=== PATIENT | female | born 1970 | race Hispanic/Latino ===

== ENCOUNTER → 2017-08-15 | Day surgery (SDC) | payer OTHER ==
[2017-08-14 16:08] LABS: ANION GAP 13.8 mmol/L (8-16); BLOOD UREA NITROGEN 14 mg/dL (7-26); BUN/CREATININE RATIO 20 (6-25); CALCIUM 9.8 mg/dL (8.4-10.2); CARBON DIOXIDE 27 mmol/L (22-29); CHLORIDE 103 mmol/L (98-107); CREATININE, SERUM 0.71 mg/dL (0.57-1.11); EST GLOMERULAR FILTRATION RATE > 60 ML/MIN (60-); GLUCOSE 170 mg/dL (74-118); POTASSIUM 3.8 mmol/L (3.5-5.1); SODIUM 140 mmol/L (136-145)
[~2017-08-15] MED LIST: ATORVASTATIN CA10 MG PO; BUPIVACAINE HCL 0.5% INJ 30 ML VIAL INJ ONE; CEFAZOLIN SOD 1 GM VIAL ONE; DEXAMETHASONE SOD PHOS INJ 4 MG/ML VIAL ONE; FENTANYL CITRATE/PF 100MCG/2 ML INJ ONE; HYDROMORPHONE 1MG/1ML INJ ONE; KETOROLAC TROMETHAMINE 30 MG/ML VIAL ONE; LEVOTHYROXINE50 MCG PO; LIDOCAINE HCL 2% LOCAL INJ 5 ML SDV VIAL INJ ONE; LISINOPRIL2.5 MG PO; METFORMIN HCL500 M2 PO; METOCLOPRAMIDE HCL 10 MG/2ML VIAL ONE; MIDAZOLAM HCL 2 MG/2 ML VIAL ONE; MUPIROCIN 2% OINT 22 GM TUBE ONE; ONDANSETRON HCL 4 MG ORAL DISINTEGRATING TAB ONE; ONDANSETRON HCL INJ 2 MG/ML VIAL ONE; PROPOFOL IV EMULSION 10 MG/ML 20 ML VIAL ONE; SEVOFLURANE INHAL SOLN 250 ML PEN BTL ONE
--- NOTE | 2017-08-15 14:17 | Operative Report ---
DATE OF PROCEDURE: August 15, 2017 GRAVEL WHEELER: Sky Grace PA-C The patient was brought to the operating room for induction of anesthesia. Throughout this case, my PA's assistance was necessary for retraction of soft tissue and positioning of the extremity. This allows for efficient and technically successful execution of the operation and is considered medically necessary. PREOPERATIVE DIAGNOSIS: Left olecranon process fracture. POSTOPERATIVE DIAGNOSIS: Left olecranon process fracture. PROCEDURE: Open reduction internal fixation left olecranon process. INDICATIONS: The patient is a 47-year-old lady who sustained a displaced left olecranon fracture. The findings and options have been discussed. We have recommended open reduction with internal fixation. The risks and benefits have been explained. She states she understands and wishes to proceed. DESCRIPTION OF PROCEDURE: The patient was brought to the operating room and placed under general anesthetic. Her left upper extremity was prepped and draped in a sterile manner. A preoperative time out was performed. She received prophylactic antibiotics in the holding area. A proximal tourniquet was inflated to 250 mmHg. A posterior incision was made over the elbow. The fracture site was carefully exposed. The fracture was reduced with a reduction clamp. A Jones and Nephew size specific olecranon plate was then placed onto the bone. This was locked proximally and distally with a combination of compression and locking screws. Anatomic reduction was obtained. Intraoperative x-rays confirmed satisfactory positioning of the hardware and reduction of the fracture. The wound was thoroughly irrigated. Ten mL of 0.5% Marcaine was injected around the incision. The incision was closed with subcuticular Vicryl and nylon stitches. A sterile bandage and a posterior splint were applied. The estimated blood loss was 5 mL. At the end of the procedure, all needle and sponge counts were correct. Job#: [id number] NAKIA
== END | disposition home or self-care (01) ==
LOC: OR 07:52
PROVIDERS: ATTEND Specialist
DX: S52.022A Displaced fracture of olecranon process without intraarticular extension of left ulna, initial encounter for closed fracture (principal); W01.0XXA Fall on same level from slipping, tripping and stumbling without subsequent striking against object, initial encounter; Y92.017 Garden or yard in single-family (private) house as the place of occurrence of the external cause; I10 Essential (primary) hypertension; E11.9 Type 2 diabetes mellitus without complications; Z79.84 Long term (current) use of oral hypoglycemic drugs; K21.9 Gastro-esophageal reflux disease without esophagitis; F17.210 Nicotine dependence, cigarettes, uncomplicated; Z01.810 Encounter for preprocedural cardiovascular examination; Z01.812 Encounter for preprocedural laboratory examination; Z86.718 Personal history of other venous thrombosis and embolism
CPT/HCPCS: 24685; 36415 ×2; 76000; 80048; 82948; 93005; J0690; J1100; J1170; J1885; J2001; J2250; J2405; J2765

== ENCOUNTER 2017-10-12 09:00 | Outpatient (RCR) | payer OTHER ==
[~2017-10-12 09:00] MED LIST changes: -BUPIVACAINE HCL 0.5% INJ 30 ML VIAL INJ ONE; -CEFAZOLIN SOD 1 GM VIAL ONE; -DEXAMETHASONE SOD PHOS INJ 4 MG/ML VIAL ONE; -FENTANYL CITRATE/PF 100MCG/2 ML INJ ONE; -HYDROMORPHONE 1MG/1ML INJ ONE; -KETOROLAC TROMETHAMINE 30 MG/ML VIAL ONE; -LIDOCAINE HCL 2% LOCAL INJ 5 ML SDV VIAL INJ ONE; -METOCLOPRAMIDE HCL 10 MG/2ML VIAL ONE; -MIDAZOLAM HCL 2 MG/2 ML VIAL ONE; -MUPIROCIN 2% OINT 22 GM TUBE ONE; -ONDANSETRON HCL 4 MG ORAL DISINTEGRATING TAB ONE; -ONDANSETRON HCL INJ 2 MG/ML VIAL ONE; -PROPOFOL IV EMULSION 10 MG/ML 20 ML VIAL ONE; -SEVOFLURANE INHAL SOLN 250 ML PEN BTL ONE
== END 2017-10-14 ==
LOC: OT 09:00
PROVIDERS: ATTEND Specialist
DX: S52.032D Displaced fracture of olecranon process with intraarticular extension of left ulna, subsequent encounter for closed fracture with routine healing (principal)

== ENCOUNTER 2017-10-17 09:54 | Outpatient (RCR) | payer OTHER | END 2017-11-14 | LOC: OT 09:54 | PROVIDERS: ATTEND Specialist | DX: S52.032D Displaced fracture of olecranon process with intraarticular extension of left ulna, subsequent encounter for closed fracture with routine healing (principal) ==

== ENCOUNTER → 2018-02-13 | Day surgery (SDC) | payer OTHER ==
[~2018-02-13] MED LIST changes: +ASPIRIN81 MG; +FENTANYL CITRATE/PF 100MCG/2 ML INJ ONE; +MIDAZOLAM HCL 2 MG/2 ML VIAL ONE; +OR PHACO EYE KIT ONE; +PREOP PHACO EYE KIT ONE
[2018-02-13 13:45] VITALS: BP 146/84
== END | disposition home or self-care (01) ==
LOC: OR 11:12
PROVIDERS: ATTEND Ophthalmology
DX: H25.13 Age-related nuclear cataract, bilateral (principal); E03.9 Hypothyroidism, unspecified; E11.65 Type 2 diabetes mellitus with hyperglycemia; F17.210 Nicotine dependence, cigarettes, uncomplicated; Z79.84 Long term (current) use of oral hypoglycemic drugs; Z79.82 Long term (current) use of aspirin; Z68.34 Body mass index [BMI] 34.0-34.9, adult; Z86.73 Personal history of transient ischemic attack (TIA), and cerebral infarction without residual deficits
CPT/HCPCS: 36415; 66984; 82948; J2250; V2632

== ENCOUNTER → 2018-03-13 | Day surgery (SDC) | payer OTHER ==
[2018-03-02 12:19] LABS: BASOPHILS # (AUTO) 0.1 (0.0-0.1); BASOPHILS % 0.9 % (0.0-1.0); EOSINOPHILS # (AUTO) 0.3 (0.0-0.4); EOSINOPHILS % 2.9 % (0.0-6.0); HEMATOCRIT 46.3 % (34.2-44.1); HEMOGLOBIN 15.2 g/dL (12.0-16.0); LYMPHOCYTES % 33.3 % (18.0-39.1); MEAN CORPUSCULAR HEMOGLOBIN 27.8 pg (28-32); MEAN CORPUSCULAR HGB CONC 32.8 g/dL (31-35); MEAN CORPUSCULAR VOLUME 84.8 fL (81-99); MONOCYTES # (AUTO) 0.8 (0.2-0.8); MONOCYTES % 8.3 % (4.4-11.3); NEUTROPHILS # (AUTO) 4.9 (2.1-6.9); NEUTROPHILS % 54.2 % (38.7-80.0); PLATELET COUNT 275 x10e3/uL (140-360); RED BLOOD COUNT 5.46 x10e6/uL (3.6-5.1); RED CELL DISTRIBUTION WIDTH 12.9 % (11.7-14.4)
[2018-03-13 13:10] VITALS: BP 107/56
== END | disposition home or self-care (01) ==
LOC: OR 09:24
PROVIDERS: ATTEND Ophthalmology
DX: H25.12 Age-related nuclear cataract, left eye (principal); Z86.73 Personal history of transient ischemic attack (TIA), and cerebral infarction without residual deficits; I10 Essential (primary) hypertension; E78.5 Hyperlipidemia, unspecified; E11.9 Type 2 diabetes mellitus without complications; F17.210 Nicotine dependence, cigarettes, uncomplicated; Z01.812 Encounter for preprocedural laboratory examination; Z79.82 Long term (current) use of aspirin; Z79.84 Long term (current) use of oral hypoglycemic drugs
CPT/HCPCS: 36415 ×2; 66984; 82948; 85025; J2250; V2632

== ENCOUNTER 2020-01-22 07:22 | Inpatient (IN) | payer OTHER ==
[~2020-01-22] VITALS: Ht 152.4 cm; Wt 87.5 kg
[~2020-01-22 07:22] MED LIST changes: -FENTANYL CITRATE/PF 100MCG/2 ML INJ ONE; -MIDAZOLAM HCL 2 MG/2 ML VIAL ONE; -OR PHACO EYE KIT ONE; -PREOP PHACO EYE KIT ONE
--- NOTE | 2020-01-22 07:37 | Emergency Department Note ---
History of Present Illnes History of Present Illness Chief Complaint: Neurological History of Present Illness This is a 49 year old female Chief Complaint Comment Patient in from home with complaints of right sided numbness, weakness and nausea that started last night around 1999. Patient reports that she woke up feeling worse so she came in to the ER. Patient does have a history of CVA in 2016. Denies headache, blurred vision. Historian: Patient Arrival Mode: Car Online Journalist Required: No Onset (how long ago): day(s) (1) Location: R face Quality: Numbness Radiation: Reports non-radiation Severity: mild Onset quality: gradual Duration (how long): day(s) (1) Timing of current episode: constant Progression: worsening Chronicity: new Context: Denies recent illness, Denies recent surgery Relieving factors: none Exacerbating factors: none Associated symptoms: Denies denies other symptoms Treatments prior to arrival: none Past Medical/Family History Physician Review I have reviewed the patient's past medical and family history. Any updates have been documented here. Past Medical History Recent Fever: No Clinical Suspicion of Infectio: No New/Unexplained Change in Ment: No Other Any Pre-Existing Lines (PICC,: No Review of Systems Review of Systems Constitutional: Reports no symptoms EENTM: Reports no symptoms Cardiovascular: Reports no symptoms Respiratory: Reports no symptoms Gastrointestinal: Reports no symptoms Genitourinary: Reports no symptoms Musculoskeletal: Reports no symptoms Integumentary: Reports no symptoms Neurological: Reports as per HPI, Reports numbness (R face) Psychological: Reports no symptoms Endocrine: Reports no symptoms Hematological/Lymphatic: Reports no symptoms Physical Exam Related Data Allergies: Coded Allergies: No Known Allergies (Unverified , 08/14/17) Triage Vital Signs Vital Signs Date Time Temp Pulse Resp B/P (MAP) Pulse Ox O2 Delivery O2 Flow Rate FiO2 01/22/20 07:24 98.4 83 16 167/77 100 Room Air Vital signs reviewed: Yes Physical Exam CONSTITUTIONAL Constitutional: Present well-developed, Present well-nourished HENT HENT: Present normocephalic, Present atraumatic, Present oropharynx clear/moist, Present nose normal HENT L/R: Present left ext ear normal, Present right ext ear normal EYES Eyes: Reports PERRL, Reports conjunctivae normal NECK Neck: Present ROM normal PULMONARY Pulmonary: Present effort normal, Present breath sounds normal CARDIOVASCULAR Cardiovascular: Present regular rhythm, Present heart sounds normal, Present capillary refill normal, Present normal rate GASTROINTESTINAL Abdominal: Present soft, Present nontender, Present bowel sounds normal GENITOURINARY Genitourinary: Present exam deferred SKIN Skin: Present warm, Present dry MUSCULOSKELETAL Musculoskeletal: Present ROM normal NEUROLOGICAL Neurological: Present alert, Present oriented x 3, Present no gross motor or sensory deficits; Absent cranial nerve deficit, Absent sensory deficit, Absent abnormal coordination, Absent abnormal gait, Absent weakness PSYCHOLOGICAL Psychological: Present mood/affect normal, Present judgement normal Results Laboratory Laboratory Laboratory Tests Test 01/22/20 07:28 Bedside Glucose 152 mg/dL (70-120) Procedures 12 Lead ECG Interpretation ECG Interpretation : Online Journalist: Interpreted by ED physician Date: Jan 22, 2020 Rhythm: sinus rhythm Rate: normal QRS axis: normal ST segments normal: Yes T waves normal: Yes Clinical Impression: normal ECG Assessment & Plan Medical Decision Making MDM 49 y.o F presents for R sided facial numbness. Had this a few years ago and had MRI which did not suggest stroke. Symptoms onset last night around 9PM. Initial diff includes CVA, ICH, ischemic stroke, focal seizure, among others. Exam shows NIH 0, no FND, CN II-XII intact. Stroke w/u benign but does show age indeterminate infarct in the monsalve radiata. She was given aspirin and discussed with Dr. Galindo was agreed to admit for strokelike symptoms. Patient is approp [facility] for transfer to the floor. Reassessment Reassessment time: 09:12 Reassessment Well appearing, NAD Assessment & Plan Final Impression: (1) Stroke-like symptom Depart Disposition: ADMITTED Last Vital Signs Date Time Temp Pulse Resp B/P (MAP) Pulse Ox O2 Delivery O2 Flow Rate FiO2 01/22/20 07:24 98.4 83 16 167/77 100 Room Air Home Meds Reported Medications Aspirin (ASPIRIN) 81 Mg Tab.chew 02/05/18 Atorvastatin Calcium (ATORVASTATIN CALCIUM) 10 Mg Tablet, 10 MG PO 2100, #30 TAB 08/14/17 Levothyroxine Sodium (LEVOTHYROXINE SODIUM) 50 Mcg Tablet, 50 MCG PO DAILY, #30 TAB 08/14/17 Metformin Hcl (METFORMIN HCL ER) 500 Mg Tab.er.24, 1000 MG PO BID, #60 TAB 08/14/17 Lisinopril (LISINOPRIL) 2.5 Mg Tablet, 2.5 MG PO DAILY, #30 TAB 08/14/17 LEONA BOWDEN MD Jan 22, 2020 07:37
[2020-01-22 07:50] LABS: BASOPHILS # (AUTO) 0.1 (0.0-0.1); BASOPHILS % 1.3 % (0.0-1.0); EOSINOPHILS # (AUTO) 0.5 (0.0-0.4); EOSINOPHILS % 5.3 % (0.0-6.0); HEMATOCRIT 40.1 % (34.2-44.1); HEMOGLOBIN 13.8 g/dL (12.0-16.0); LYMPHOCYTES # (AUTO) 2.4 (1.0-3.2); LYMPHOCYTES % 26.2 % (18.0-39.1); MEAN CORPUSCULAR HEMOGLOBIN 29.7 pg (28-32); MEAN CORPUSCULAR HGB CONC 34.4 g/dL (31-35); MEAN CORPUSCULAR VOLUME 86.4 fL (81-99); MONOCYTES # (AUTO) 0.8 (0.2-0.8); MONOCYTES % 8.7 % (4.4-11.3); NEUTROPHILS # (AUTO) 5.3 (2.1-6.9); NEUTROPHILS % 58.3 % (38.7-80.0); PLATELET COUNT 224 x10e3/uL (140-360); RED BLOOD COUNT 4.64 x10e6/uL (3.6-5.1); RED CELL DISTRIBUTION WIDTH 14.6 % (11.7-14.4)
[2020-01-22 08:00] LABS: INR 0.91; PROTHROMBIN TIME 12.7 seconds (11.9-14.5)
--- OUTSIDE RECORDS SUMMARY | 2020-01-22 08:00 | XMS REPORT | Continuity of Care Document ---
Author Author [facility] t Organization [facility] Address [address] [place] [address] Phone Unavailable Care Team Providers Care Road Machinery Inspector Name Role Phone NO, FAMILY PCP Unavailable Payers Payer Name Policy Type Policy Number Effective Date Expiration Date Dat [facility] [id number] 2017 00:00:00 [facility] Problems This patient has no known problems. Allergies, Adverse Reactions, Alerts This patient has no known allergies or adverse reactions. Medications Ordered Medication Name Filled Medication Name Start Date Stop Da te Current Medication? Ordering Clinician Indication Dosage Frequency Signature (SIG) Comments Components Source Atorvastatin Calcium 10 Mg Tablet Atorvastatin Calcium 10 Mg Tablet Yes 10 Today At 9:00PM [facility] Levothyroxine Sodium 50 Mcg Tablet Levothyroxine Sodium 50 Mcg Tablet Yes 50 Daily [facility] Lisinopril 2.5 Mg Tablet Lisinopril 2.5 Mg Tablet Yes 2.5 Daily [facility] Metformin Hcl (Metformin Hcl Er) 500 Mg Tab.er.24 Metf ormin Hcl (Metformin Hcl Er) 500 Mg Tab.er.24 Yes 1000 Twice A Day [facility] Procedures Procedure Date / Time Performed Performing Clinician [facility] e TREAT ULNAR FRACTURE 2017-08-15 00:00:00 PILLO DE GUZMAN [facility] Encounters Start Date/Time End Date/Time Encounter Type Admission Type [facility] Facility Care Department Encounter ID Source 2017-10-17 09:54:00 2017-11-14 23:59:[address] [facility] [id number] [facility] 2017-09-27 10:04:00 2017-10-14 23:59:[address] [facility] [id number] [facility] 2017-08-15 07:52:00 2017-08-15 07:52:[address] [facility] [address] [facility] [id number] [facility] Results Test Description Test Time Test Comments Results Result Comments Source Bedside Glucose 2017-08-15 07:41:00 Test Item Bedside Glucose (test code = 63566-8) 198 70-120 H Meter ID: [id number] [facility] 2017-08-15 07:41:00* Test Item Value Reference Range Interpretation Comments Bedside Glucose (test code = 91492-4) 198 70-120 H [id number] [facility] 16:08:00* Test Item Value Reference Range Interpretation Comments Sodium Level (test code = 2951-2) 140 136-145 [facility] [id number] 16:08:00* Test Item Value Reference Range Interpretation Comments Potassium Level (test code = 2823-3) 3.8 3.5-5.1 [facility] [id number] 16:08:00* Test Item Value Reference Range Interpretation Comments Chloride Level (test code = 2075-0) 103 98-107 [facility] CenterCar[facility] Dioxide [id number] 16:08:00* Test Item Value Reference Range Interpretation Comments Carbon Dioxide Level (test code = 2028-9) 27 22-29 [facility] CenterAnion [id number] 16:08:00* Test Item Value Reference Range Interpretation Comments Anion Gap (test code = 31850-5) 13.8 8-16 [facility] Urea [id number] 16:08:00* Test Item Value Reference Range Interpretation Comments Blood Urea Nitrogen (test code = 3094-0) 14 7-26 [facility] CenterCreatinine2018-04-30 16:08:00* Test Item Value Reference Range Interpretation Comments Creatinine (test code = 2160-0) 0.71 0.57-1.11 [facility]/Creatinine [id number] 16:08:00* Test Item Value Reference Range Interpretation Comments BUN/Creatinine Ratio (test code = 3097-3) 20 6-25 [facility] Center[facility]at Glomerular Filtration Rate 2017-08-14 16:08:00* Test Item Value Reference Range Interpretation Comments Estimat Glomerular Filtration Rate (test code = 44290-9) 60- >60 Ranges were taken from the National Kidney Disease Education Program and the [facility] Kidney Foundation literature.Reference ranges:60 or greater: Kqnaab82-38 ( for 3 consecutive months): Chronic kidney disease 15 or less: Kidney failureOdessa Regional Medical CenterGlucose [id number] 16:08:00* Test Item Value Reference Range Interpretation Comments Glucose Level (test code = CEF0845) 170 74-118 H [facility] CenterCalcium [id number] 16:08:00* Test Item Value Reference Range Interpretation Comments Calcium Level (test code = 82128-3) 9.8 8.4-10.2 [facility] [id number] 16:08:00* Test Item Value Reference Range Interpretation Comments Sodium Level (test code = 2951-2) 140 136-145 [facility] CenterPotassium [id number] 16:08:00* Test Item Value Reference Range Interpretation Comments Potassium Level (test code = 2823-3) 3.8 3.5-5.1 [facility] CenterChloride [id number] 16:08:00* Test Item Value Reference Range Interpretation Comments Chloride Level (test code = 2075-0) 103 98-107 [facility] CenterCarbon Dioxide [id number] 16:08:00* Test Item Value Reference Range Interpretation Comments Carbon Dioxide Level (test code = 2028-9) 27 22-29 [facility] CenterAnion [id number] 16:08:00* Test Item Value Reference Range Interpretation Comments Anion Gap (test code = 98181-5) 13.8 8-16 [facility] CenterBlood Urea [id number] 16:08:00* Test Item Value Reference Range Interpretation Comments Blood Urea Nitrogen (test code = 3094-0) 14 7-26 [facility] CenterCreatinine2018-04-30 16:08:00* Test Item Value Reference Range Interpretation Comments Creatinine (test code = 2160-0) 0.71 0.57-1.11 [facility] CenterBUN/Creatinine [id number] 16:08:00* Test Item Value Reference Range Interpretation Comments BUN/Creatinine Ratio (test code = 3097-3) 20 6-25 [facility] CenterEstim[facility] Glomerular Filtration Rate 2017-08-14 16:08:00* Test Item Value Reference Range Interpretation Comments Estimat Glomerular Filtration Rate (test code = 26898-0) 60- >60 Ranges were taken from the National Kidney Disease Education Program and the [facility] literature.Reference ranges:60 or greater: Alrhyj52-19 ( for 3 consecutive months): Chronic kidney disease 15 or less: Kidney failureOdessa Regional Medical CenterGlucose Qzqvq1155-14-66 16:08:00* Test Item Value Reference Range Interpretation Comments Glucose Level (test code = KXE8312) 170 74-118 H [facility] CenterCalcium [id number] 16:08:00* Test Item Value Reference Range Interpretation Comments Calcium Level (test code = 17667-9) 9.8 8.4-10.2 [facility]
[2020-01-22 08:10] LABS: ALANINE AMINOTRANSFERASE 15 IU/L (0-55); ALBUMIN 3.3 g/dL (3.5-5.0); ALBUMIN/GLOBULIN RATIO 0.8 (0.8-2.0); ALKALINE PHOSPHATASE 80 IU/L (40-150); BLOOD UREA NITROGEN 16 mg/dL (7-26); BUN/CREATININE RATIO 21 (6-25); CALCIUM 9.1 mg/dL (8.4-10.2); CARBON DIOXIDE 24 mmol/L (22-29); CHLORIDE 103 mmol/L (98-107); CREATININE, SERUM 0.75 mg/dL (0.57-1.11); EST GLOMERULAR FILTRATION RATE > 60 ML/MIN (60-); GLUCOSE 156 mg/dL (74-118); SODIUM 137 mmol/L (136-145)
--- NOTE | 2020-01-22 08:17 | Diagnostic Imaging Report ---
Exam: Head CT without contrast History: Right-sided body numbness/weakness Comparison studies: None Technique: Axial images were obtained from the skull base to the vertex. Coronal and sagittal images reconstructed from the axial data. Dose modulation, iterative reconstruction, and/or weight based adjustment of the mA/kV was utilized to reduce the radiation dose to as low as reasonably achievable. Radiation dose: Total DLP: 921.4 mGy*cm. Estimated effective dose: DLP x 0.015 Intravenous contrast: None Findings: Scalp: No abnormalities. Bones: No fractures, blastic or lytic lesions. Brain sulci: Appropriate for age. Ventricles: Normal in size and configuration. No hydrocephalus. Extra-axial spaces: No masses, no fluid collection. Parenchyma: Age-indeterminate hypodense insults in the left monsalve radiata regional to the left perirolandic white matter tracts. Additional age-indeterminate lacunar insult in the posterior right frontal monsalve radiata, possibly chronic. Small hypodensity at the junction of the posterior limb of the right internal capsule and right lentiform nucleus may be a chronic lacunar infarct. Additional subtle scattered hypodensities in the supratentorial white matter are nonspecific. Sellar/suprasellar region: No abnormalities. Craniocervical junction: Patent foramen magnum. No Chiari one malformation. Incidental findings: Atherosclerotic calcifications in the carotid siphons and in the intradural vertebral arteries. IMPRESSION: 1. Age-indeterminate nonhemorrhagic insults in the bilateral monsalve radiata. Insult on the left may be acute in the context of localizing right-sided neurologic symptoms. 2. Additional scattered nonspecific white matter hypodensities may be chronic microvascular ischemic changes. Less likely consideration would include demyelinating disease. Recommend brain MRI with IV contrast to further evaluate. Signed by: Dr. Naresh Cramer M.D. on 01/22/2020 8:14 AM
[2020-01-22] MEDS ORDERED: ASPIRIN 325 MG TAB PO ONE (08:45)
--- OUTSIDE RECORDS SUMMARY | 2020-01-22 09:01 | XMS REPORT | Continuity of Care Document ---
Author Author [facility] t Organization [facility] Address [address] [place] [address] Phone Unavailable Care Team Providers Care Extended Day Teacher Name Role Phone NO, FAMILY PCP Unavailable Fer Ponce Attphydat Unavailable Payers Payer Name Policy Type Policy Number Effective Date Expiration Date Dat Stephens o [id number] 2017 00:00:00 [facility] Problems This patient has no known problems. Allergies, Adverse Reactions, Alerts This patient has no known allergies or adverse reactions. Medications Ordered Medication Name Filled Medication Name Start Date Stop Da te Current Medication? Ordering Clinician Indication Dosage Frequency Signature (SIG) Comments Components Source Atorvastatin Calcium 10 Mg Tablet Atorvastatin Calcium 10 Mg Tablet Yes 10 Today At 9:00PM [facility] Levothyroxine Sodium 50 Mcg Tablet Levothyroxine Sodium 50 Mcg Tablet Yes 50 Daily [facility] Lisinopril 2.5 Mg Tablet Lisinopril 2.5 Mg Tablet Yes 2.5 Daily [facility] Metformin Hcl (Metformin Hcl Er) 500 Mg Tab.er.24 Metf ormin Hcl (Metformin Hcl Er) 500 Mg Tab.er.24 Yes 1000 Twice A Day [facility] Procedures Procedure Date / Time Performed Performing Clinician [facility] e TREAT ULNAR FRACTURE 2017-08-15 00:00:00 PILLO DE GUZMAN [facility] Encounters Start Date/Time End Date/Time En[facility] Ad[facility] En[facility] ID Source 2017-10-17 09:54:00 2017-11-14 23:59:00 Discharged Recurring [facility] [id number] [facility] 2017-09-27 10:04:00 2017-10-14 23:59:00 Discharged Recurring [facility] [id number] [facility] 2017-08-15 07:52:00 2017-08-15 07:52:00 Registered Surgical Day Care [facility] [id number] [facility] Results Test Description Test Time Test Comments Results Result Comments Source CT BRAIN WO 2020-01-22 08:04:00 [facility] [address] [address] Patient Name: DALTON TOMAS MR #: [id number] : 1970 Age/Sex: 49/F Req #: [id number] Adm Physician: Ordered by: Leona Ponce MD Report #: [id number] Location: Room/Bed: Procedure: [id number] CT/CT BRAIN WO Exam Date: 01/22/20 Exam Time: 0740 REPORT STATUS: Signed Exam: Head CT without contrast History: Right- sided body numbness/weakness Comparison studies: None Technique: Axial images were obtained from the skull base to the vertex. Coronal and sagittal images reconstructed from the axial data. Dose modulation, iterative reconstruction, and/or weight based adjustment of the mA/kV was utilized to reduce the radiation dose to as low as reasonably achievable. Radiation dose: Total DLP: 921.4 mGy*cm. Estimated effective dose: DLP x 0.015 Intravenous contrast: None Findings: Scalp: No abnormalities. Bones: No fractures, blastic or lytic lesions. Brain sulci: Appropriate for age. Ventricles: Normal in size and configuration. No hydrocephalus. Extra-axial spaces: No masses, no fluid collection. Parenchyma: Age-indeterminate hypodense insults in the left monsalve radiata regional to the left perirolandic white matter tracts. Additional age-indeterminate lacunar insult in the posterior right frontal monsalve radiata, possibly chronic. Small hypodensity at the junction of the posterior limb of the right internal capsule and right lentiform nucleus may be a chronic lacunar infarct. Additional subtle scattered hypodensities in the supratentorial white matter are nonspecific. Sellar/suprasellar region: No abnormalities. Craniocervical junction: Patent foramen magnum. No Chiari one malformation. Incidental findings: Atherosclerotic calcifications in the carotid siphons and in the intradural vertebral arteries. IMPRESSION: 1. Age-indeterminate nonhemorrhagic insults in the bilateral monsalve radiata. Insult on the left may be acute in the context of localizing right-sided neurologic symptoms. 2. Additional scattered nonspecific white matter hypodensities may be chronic microvascular ischemic changes. Less likely consideration would include demyelinating disease. Recommend brain MRI with IV contrast to further evaluate. Signed by: Dr. Pillo Cramer M.D. on 01/22/2020 8:14 AM Dictated By: PILLO CRAMER MD 3 Transcribed By: ELMER on 01/22/20813 COPY TO: LEONA PONCE MD Bedside Glucose 2017-08-15 07:41:00 Test Item Bedside Glucose (test code = 50004-4) 198 70-120 H Meter ID: [id number] [facility] HospitalBedside Glucose 2017-08-15 07:41:00* Test Item Value Reference Range Interpretation Comments Bedside Glucose (test code = 32252-8) 198 70-120 H Meter ID: [id number] [facility] 2017-08-14 16:08:00* Test Item Value Reference Range Interpretation Comments Sodium Level (test code = 2951-2) 140 136-145 [facility] HospitalPotassium Zecit5640-47-74 16:08:00* Test Item Value Reference Range Interpretation Comments Potassium Level (test code = 2823-3) 3.8 3.5-5.1 [facility] HospitalChloride [id number] 16:08:00* Test Item Value Reference Range Interpretation Comments Chloride Level (test code = 2075-0) 103 98-107 [facility] HospitalCarbon Dioxide Ihvea1540-09-34 16:08:00* Test Item Value Reference Range Interpretation Comments Carbon Dioxide Level (test code = 2028-9) 27 22-29 [facility] HospitalAnion [id number] 16:08:00* Test Item Value Reference Range Interpretation Comments Anion Gap (test code = 52814-4) 13.8 8-16 [facility] HospitalBlood Urea Titcsppc0286-81-80 16:08:00* Test Item Value Reference Range Interpretation Comments Blood Urea Nitrogen (test code = 3094-0) 14 7-26 [facility] HospitalCreatinine2018-04-30 16:08:00* Test Item Value Reference Range Interpretation Comments Creatinine (test code = 2160-0) 0.71 0.57-1.11 [facility] HospitalBUN/Creatinine Ojvfw1024-50-79 16:08:00* Test Item Value Reference Range Interpretation Comments BUN/Creatinine Ratio (test code = 3097-3) 20 6-25 [facility] HospitalEstimat Glomerular Filtration Rate 2017-08-14 16:08:00* Test Item Value Reference Range Interpretation Comments Estimat Glomerular Filtration Rate (test code = 44997-4) 60- >60 Ranges were taken from the National Kidney Disease Education Program and the [facility] literature.Reference ranges:60 or greater: Wmrflg58-13 ( for 3 consecutive months): Chronic kidney disease 15 or less: Kidney failureParkland Memorial HospitalGlucose Jwuoi5705-07-03 16:08:00* Test Item Value Reference Range Interpretation Comments Glucose Level (test code = PPR1249) 170 74-118 H [facility] HospitalCalcium Mtaut3099-64-10 16:08:00* Test Item Value Reference Range Interpretation Comments Calcium Level (test code = 28397-3) 9.8 8.4-10.2 [facility] Cveht6303-85-71 16:08:00* Test Item Value Reference Range Interpretation Comments Sodium Level (test code = 2951-2) 140 136-145 [facility] HospitalPotassium Yunuf1597-51-23 16:08:00* Test Item Value Reference Range Interpretation Comments Potassium Level (test code = 2823-3) 3.8 3.5-5.1 [facility] HospitalChloride Kdlfo0808-00-52 16:08:00* Test Item Value Reference Range Interpretation Comments Chloride Level (test code = 2075-0) 103 98-107 [facility] HospitalCarbon Dioxide Ycovr2647-08-94 16:08:00* Test Item Value Reference Range Interpretation Comments Carbon Dioxide Level (test code = 2028-9) 27 22-29 [facility] HospitalAnion [id number] 16:08:00* Test Item Value Reference Range Interpretation Comments Anion Gap (test code = 51480-6) 13.8 8-16 [facility] HospitalBlood Urea Rhyqvfmp7385-80-27 16:08:00* Test Item Value Reference Range Interpretation Comments Blood Urea Nitrogen (test code = 3094-0) 14 7-26 [facility] HospitalCreatinine2018-04-30 16:08:00* Test Item Value Reference Range Interpretation Comments Creatinine (test code = 2160-0) 0.71 0.57-1.11 [facility] HospitalBUN/Creatinine Oedae2469-10-76 16:08:00* Test Item Value Reference Range Interpretation Comments BUN/Creatinine Ratio (test code = 3097-3) 20 6-25 [facility] HospitalEstimat Glomerular Filtration Rate 2017-08-14 16:08:00* Test Item Value Reference Range Interpretation Comments Estimat Glomerular Filtration Rate (test code = 31982-5) 60- >60 Ranges were taken from the National Kidney Disease Education Program and the [facility] literature.Reference ranges:60 or greater: Xgeetj01-82 ( for 3 consecutive months): Chronic kidney disease 15 or less: Kidney failureParkland Memorial HospitalGlucose Qzzxf7746-01-13 16:08:00* Test Item Value Reference Range Interpretation Comments Glucose Level (test code = OLU3487) 170 74-118 H [facility] HospitalCalcium Anehr4070-54-90 16:08:00* Test Item Value Reference Range Interpretation Comments Calcium Level (test code = 23741-8) 9.8 8.4-10.2 [facility]
[2020-01-22] MEDS ORDERED: GADOBENATE DIMEGLUMINE 1 ML IV ONE (09:08)
--- NOTE | 2020-01-22 10:52 | NUR ---
RCD PATIENT FROM ER BY BED PT IS ALERT AND ORIENTED VITALS CHECKED ADMISSION ASSESSMENT AND HISTORY DONE PT DENIED ANY KIND OF PAIN ,IV PATENT ,INSTRUCTED PT REGARDING HOSPITAL POLICY AND VISITOR POLICY BED LOW AND LOCKED CALL LIGHT IN REACH ,FILLED ADMISSION CHEQUE LIST
--- NOTE | 2020-01-22 10:56 | Diagnostic Imaging Report ---
History: Evaluate for CVA, right-sided numbness, weakness Comparison studies: Same-day head CT 01/22/2020 at 7:50 AM Technique: Pre-contrast: Sagittal T2; axial T1-IR, MPGR, DWI, T2 FLAIR Post-contrast: axial and coronal T1. Intravenous contrast: 18 cc of MultiHance Findings: Several pulse sequences are somewhat limited by artifacts related to patient motion. In spite of this limitation: Scalp: No abnormal signal. No masses. Bone marrow: Normal in signal intensity. Brain sulci: Appropriate for age. Ventricles: Normal in size . No hydrocephalus. Parenchyma: Acute 8mm focal ischemia with restricted diffusion and T2 FLAIR hyperintensity present along the left thalamocapsular junction. Chronic lacunar infarcts from in the posterior right frontal monsalve radiata, posterior limb of the right internal capsule at its junction with the lentiform nucleus, within the left centrum semiovale, left monsalve radiata and in the left putamen. A few additional scattered T2 FLAIR hyperintense foci in the supratentorial white matter are nonspecific but are most compatible with chronic microvascular ischemic changes. No mass, hemorrhage or enhancing abnormality. Suprasellar region: No abnormalities. Craniocervical junction: Patent foramen magnum. No Chiari one malformation. Vessels: Normal flow-voids in the arteries and sinuses. IMPRESSION: 1. Small acute nonhemorrhagic left thalamocapsular infarct which would account for patient's localizing right-sided neurologic symptoms. 2. Multiple chronic lacunar infarcts as described with superimposed chronic microvascular ischemic changes. Findings discussed with Dr. Ponce at 10:43 AM on 01/22/2020. Signed by: Dr. Naresh Cramer M.D. on 01/22/2020 10:53 AM
[2020-01-22 11:53] VITALS: BP 158/71
[2020-01-22 11:59] VITALS: BP 158/71
--- NOTE | 2020-01-22 12:14 | NUR ---
PAGED DR DE GUZMAN TO NOTIFY THE HOME MEDS RENEWAL AND LEFT THE MESSAGE
[2020-01-22 15:03] VITALS: BP 138/88
--- NOTE | 2020-01-22 15:17 | NUR ---
paged dr spaulding and notified home meds renewal he asked bp level 138/88 he said not now and got some iv fluid
[2020-01-22] MEDS: SODIUM CHLORIDE 0.9% 1000ML 1,000 ML IV SCH (15:30)
[2020-01-22] MEDS ORDERED: DEXTROSE 50% SYRINGE 50 ML IV PRN (18:30)
--- NOTE | 2020-01-22 18:44 | NUR ---
PT RESTING ON BED BED SIDE REPORT GIVEN TO ONCOMING NURSE
[2020-01-22 20:00] VITALS: BP 126/74
[2020-01-22] MEDS: INSULIN REGULAR, HUMAN 100 UNIT/1 ML 3ML VIAL SQ SCH (21:00)
[2020-01-22] MEDS ORDERED: ATORVASTATIN 20 MG TAB PO SCH (21:00)
[2020-01-23] VITALS (12 sets, daily range): BP systolic 127–158; BP diastolic 61–89
[2020-01-23] MEDS: SODIUM CHLORIDE 0.9% 1000ML 1,000 ML IV SCH ×2 (04:50→17:33)
[2020-01-23] MEDS: LEVOTHYROXINE SODIUM 50 MCG TAB PO SCH (05:28)
[2020-01-23 06:22] LABS: CHOL/HDL RATIO 3.3 (3.0-3.6)
--- NOTE | 2020-01-23 06:35 | NUR ---
md DE GUZMAN ORDERED FOR NEURO CONSULT
--- NOTE | 2020-01-23 06:37 | NUR ---
MD BUSTAMANTE MADE AWARE OF CONSULT FOR STROKE ORDERED BY MD DE GUZMAN
--- NOTE | 2020-01-23 07:00 | NUR ---
RCD PT AT BED PT IS ALERT AND ORIENTED RESTING ON BED IV PATENT BY SALINE FLUSH BED LOW AND LOCKED CALL LIGHT IN REACH
[2020-01-23] MEDS: INSULIN REGULAR, HUMAN 100 UNIT/1 ML 3ML VIAL SQ SCH ×5 (07:30→20:49)
[2020-01-23] MEDS: ASPIRIN 325 MG TAB PO SCH (09:00)
[2020-01-23] MEDS: PREGABALIN 50 MG CAP PO SCH ×2 (09:00→16:24)
--- NOTE | 2020-01-23 10:30 | History and Physical ---
HISTORY OF PRESENT ILLNESS: A 49-year-old female, who came into the emergency room with a feeling of weakness and right-sided weakness a day ago. The patient started this one previous night ago and woke up and found that she was holding onto the side of the rails and also onto the side of the wall to walk. She had a right-sided weakness and the patient finally decided to come in yesterday and was seen and CT scan was done, which was negative. Further MRI revealed probably embolic stroke. PAST MEDICAL HISTORY: History of hyperlipidemia, history of hypertension, history of diabetes mellitus, and history of CVA in the past and hypothyroidism. MEDICATIONS: She takes at home; atorvastatin 10 mg, levothyroxine 50, lisinopril 2.5, and metformin 1000 mg twice a day. ALLERGIES: NO DRUG ALLERGIES. PAST SURGICAL HISTORY: History of hysterectomy, the patient also had D and C, also history of multiple miscarriages in the past, the patient also has a history of fractures in the right ankle and elbow with surgical intervention. SOCIAL HISTORY: No EtOH. No IV drug abuse. No history of smoking, but does not mind her diet apparently and last A1c was 8. REVIEW OF SYSTEMS: Negative for chest pain. No shortness of breath. No calf pain. No abdominal pain. No nausea, no vomiting. No diarrhea. No constipation. No rectal bleeding. No hematochezia. No hematemesis either. PHYSICAL EXAMINATION: GENERAL: The patient is alert and oriented x3. A small facial droop is present. CVS: S1, S2 normal. Regular rate and rhythm. NECK: No carotid bruits. ABDOMEN: Soft, nontender, and nondistended. EXTREMITIES: No clubbing, no cyanosis. Positive for some left-sided calf tenderness and also right-sided ankle tenderness . Otherwise normal. NEUROLOGICAL EXAMINATION: Right-sided weakness present. Reflexes are equal on both the extremities. Muscle strength is decreased in the right upper and lower extremities. NEUROLOGIC: Sensory is normal. IMAGING STUDIES: Initial brain CT done by ER shows age-indeterminate nonhemorrhagic insults in the bilateral monsalve radiata and may be acute in the context of localizing right-sided symptoms. MRI was repeated and that shows small acute nonhemorrhagic left, capsular infarct, which would account for the patient's localizing right-sided neurological symptoms. Multiple chronic lacunar infarcts as described with superimposed chronic microvascular changes. The carotid Doppler was done yesterday. A preliminary values showed no critical stenosis. Echocardiogram is pending. The patient will need a neurological evaluation and also a thrombophilia study in lieu of her multiple strokes and also pregnancies that were not successful. We will , increase her statin, maximize statin therapy to 40 mg. with multiple strokes, probably anticoagulation will be needed. We will continue to monitor the patient and also await neurological input. A vitamin B12 level and also because if the patient will be done and also a folic acid level will be done. Further recommendation per clinical course. We will continue to monitor the patient and also have physical therapy work on the patient today. Initial speech, bedside evaluation, good gag reflex as documented. MD ESA Vazquez/RICK /[id number]
--- NOTE | 2020-01-23 13:36 | Consultation ---
DATE OF CONSULTATION: Neurology Consultation. HISTORY OF PRESENT ILLNESS: She is a 49-year-old female who presents after developing sudden right-sided face, arm, and leg numbness yesterday, presented to the emergency room. Since yesterday morning, she is outside of the tPA window, was not given tPA. She does have a history of hyperlipidemia and looks like insulin resistance perhaps. She is also on thyroid medications. She has history of miscarriages x2, blood clot in her left lower extremity. She states that with the numbness, she is also more weak and walking abnormally. She was admitted to the hospital for further evaluation and care. MRI showed a stroke. At time of admission, blood pressure was 167/77. REVIEW OF SYSTEMS: Other than was reported above is negative. FAMILY HISTORY: Negative for strokes at young age. PHYSICAL EXAMINATION: VITAL SIGNS: Temperature is afebrile at 98.6, blood pressure 156/70, heart rate is 72 and regular. HEENT: Extraocular muscles intact. Face symmetric. Speech is clear without dysarthria. Tongue is midline. Palate elevates midline. No nuchal rigidity. Carotids did not have any bruits. CARDIOVASCULAR: Regular rate and rhythm. ABDOMEN: Soft and nontender. NEURO: Strength is 5/5, reflexes 2/4. Sensory is diminished to fine touch and proprioception on the right. Her gait is slightly wide-based and Romberg is positive. ASSESSMENT/PLAN: Mrs. Corin Billy comes in with an acute stroke, history of multiple blood clotting events including two miscarriages and a DVT. The question in this case would be etiology of a stroke despite the imaging, suggesting this is a lacunar infarct. She does seem to have a concerning history for hypercoagulable state. Given that she is so young, we are going to send hypercoagulable workup and recommend outpatient followup and then PT/OT clearance torque. Lipid panel is relatively reassuring. However, she should be on a statin and regular strength aspirin until she gets to follow up with Neurology and/or Hematology depending on the finding in the blood test revealed. BLAKE BUSTAMANTE MD RR/MODL /[id number]
--- NOTE | 2020-01-23 14:04 | NUR ---
Discontinuing PT services since patient is independent in functional mobility. Thank you Addendum: 01/23/20 at 1404 by Héctor vo PT Amended: Links added.
--- NOTE | 2020-01-23 16:55 | NUR ---
PT C/O SWEATING CHECKED BLOOD SUGAR 69
--- NOTE | 2020-01-23 18:39 | NUR ---
PT RESTING ON BED BED SIDE REPORT GIVEN TO ONCOMING NURSE
[2020-01-23] MEDS ORDERED: ATORVASTATIN 40 MG TAB PO SCH (21:00)
[2020-01-24] VITALS: BP 111/53
[2020-01-24 00:59] VITALS: BP 111/53
--- NOTE | 2020-01-24 04:04 | NUR ---
PATIENT GIVEN BATH PER REQUEST, LINENS CHANGED, IV SITE REMAINS INTACT, SAFETY MAINTAINED CALL LIGHT WITHIN REACH, INSTRUCTED TO CALL IF ANY ASSISTANCE NEEDED
[2020-01-24] MEDS: LEVOTHYROXINE SODIUM 50 MCG TAB PO SCH (05:30)
[2020-01-24 05:56] VITALS: BP 147/57
[2020-01-24 06:35] VITALS: BP 147/57
--- NOTE | 2020-01-24 06:46 | NUR ---
PER MD GAB FU TO DISCHARGE PT HOME IF OKAY WITH MD BUSTAMANTE, NURSE TO CONFIRM WITH MD BUSTAMANTE IF PATIENT SHOULD GO HOME ON ZARELTO OR ELIQUIS, AND OBTAIN SCRIPT PRIOR TO DISCHARGE
[2020-01-24] MEDS: SODIUM CHLORIDE 0.9% 1000ML 1,000 ML IV SCH (06:58)
--- NOTE | 2020-01-24 07:20 | NUR ---
PATIENT IS AWAKE, ALERT, AND IN STABLE CONDITION WITH NO S/S OF RESPIRATORY DISTRESS. DENIES PAIN. IV FLUIDS INFUSING. CALL LIGHT IS WITHIN REACH OF PATIENT, PATIENT INSTRUCTED TO CALL FOR ASSISTANCE NEEDED.
--- NOTE | 2020-01-24 07:28 | NUR ---
BEDSIDE SHIFT REPORT GIVEN AT BEDSIDE, MD DE GUZMAN ON FLOOR, GAVE VERBAL ORDERS TO FOLLOW UP WITH MD BUSTAMANTE FOR POSSIBLE DISCHARGE TODAY, "MAKE SURE TO CONTACT MD BUSTAMANTE TO CONFIRM IF OKAY TO DISCHARGE HER AND CONFIRM WITH HIM IF PATIENT SHOULD GO HOME ON XARELTO OR PLAVIX, ALSO PATIENT NEED FOLLOW UP APPT FOR PCP FOR REFERRAL TO [facility]ILY [facility] NURSE PRACTITIONER", PATIENT STABLE, NO PAIN OR DISCOMFORT AOX4 GAIT STEADY, CALL LIGHT WITHIN REACH
[2020-01-24] MEDS: INSULIN REGULAR, HUMAN 100 UNIT/1 ML 3ML VIAL SQ SCH ×2 (07:30→11:30)
[2020-01-24] MEDS: ASPIRIN 325 MG TAB PO SCH (08:12)
[2020-01-24] MEDS: PREGABALIN 50 MG CAP PO SCH (08:12)
--- NOTE | 2020-01-24 08:15 | Progress Note ---
DATE: SUBJECTIVE: The patient is a 49-year-old female who came in with acute CVA seen by Neurology. The patient's hematological panel is still pending, but the patient is doing well on 325 mg of aspirin and also increased dose of aspirin. OBJECTIVE: VITAL SIGNS: Temperature is 98.2, pulse is 70, respirations 16, blood pressure is 147/57. HEENT: Normocephalic and atraumatic. Slight facial droop has improved. CVS: S1, S2 normal. Regular rate and rhythm. ABDOMEN: Soft, nontender, and nondistended. EXTREMITIES: No clubbing, no cyanosis, and/or no edema. LABORATORY DATA: 1. The patient's radiological reports echo shows EF of 60%. No visualized vegetations. 2. Lower extremity preliminary report from tech shows no DVTs. A questionable chronic visualized superior vena in a femoral vein noted. We will respond with Cardiology documentation. 3. Carotid Doppler was normal. ASSESSMENT AND PLAN: Ms. Corin Billy with acute stroke. PLAN: Continue to monitor the patient, can be discharged today depending on Neurology and follow up with Hematology and Neurology as recommended. We will discharge the patient on aspirin and statin. Further recommendation per clinical course. MD ESA Vazquez/RICK /[id number]
[2020-01-24 08:56] VITALS: BP 125/72
[2020-01-24 09:26] VITALS: BP 125/72
[2020-01-24] MEDS ORDERED: PLAVIX75 MG PO (12:00)
[2020-01-24] MEDS ORDERED: LISINOPRIL10 MG PO (12:01)
[2020-01-24] MEDS ORDERED: LIPITOR20 MG PO (12:01)
--- NOTE | 2020-01-24 12:03 | NUR ---
doing ewll still numb on left vs 98.2 111/53 81 HEENT: Extraocular muscles intact. Face symmetric. Speech is clear without dysarthria. Tongue is midline. Palate elevates midline. No nuchal rigidity. Carotids did not have any bruits. CARDIOVASCULAR: Regular rate and rhythm. ABDOMEN: Soft and nontender. NEURO: Strength is 5/5, reflexes 2/4. Sensory is diminished to fine touch and proprioception on the right. Her gait is slightly wide-based and Romberg is positive. ASSESSMENT/PLAN: Mrs. Corin Billy comes in with an acute stroke, history of multiple blood clotting events including two miscarriages and a DVT. The question in this case would be etiology of a stroke despite the imaging, suggesting this is a lacunar infarct. She does seem to have a concerning history for hypercoagulable state. Given that she is so young, we are going to send hypercoagulable workup and recommend outpatient followup and then PT/OT clearance torque. Lipid panel is relatively reassuring. However, she should be on a statin and regular strength aspirin until she gets to follow up with Neurology and/or Hematology depending on the finding in the blood test revealed. home on plavix 75 atorvastatin 80 neuro follow up and hematology follow up for hypercoag state ok to dc today
--- NOTE | 2020-01-24 12:12 | NUR ---
eeg 30 min study 10/20 international electrode placement system , read in bipolar and transverse montage w concurrent video EEG data: 9-10hz pdr ryhtmic 20-40mV good reactivity to eye opening, closure and stimulation anterior beta waves >15hz < 20mV no sleep captured EEG interpretation this EEG is within normal limits, no evidence of focal dysfunction or seizure activity captured [id number]
--- NOTE | 2020-01-24 13:38 | NUR ---
PATIENT DISCHARGE HOME- PATIENT OFF THE UNIT AT 1317 PER WHEELCHAIR ACCOMPANIED BY THE PCT TO THE FRONT LOBBY. PATIENT IN STABLE CONDITION WITH NO S/S OF RESPIRATORY DISTRESS. NO PAIN VOICED. IV REMOVED WITH TIP INTACT. DISCHARGE TEACHING/INSTRUCTIONS, PATIENT EDUCATION SHEETS, AND MEDICATIONS GIVEN TO THE PATIENT. DISCHARGE QUESTIONNAIRE REVIEWED AND ORIGINAL SHEET GIVEN TO THE PATIENT. ALL PERSONAL ITEMS TAKEN WITH THE PATIENT.
== END 2020-01-24 13:17 | disposition home or self-care (01) | DRG 65 ==
LOC: ER 07:30 → ERHOLD 08:44 → MED/SURG2 10:52 → OBSVTOIN 01-23 09:19
PROVIDERS: ADMIT Family Medicine; ATTEND Family Medicine
DX: I63.81 Other cerebral infarction due to occlusion or stenosis of small artery (principal); G81.91 Hemiplegia, unspecified affecting right dominant side; E78.5 Hyperlipidemia, unspecified; I10 Essential (primary) hypertension; E11.9 Type 2 diabetes mellitus without complications; E03.9 Hypothyroidism, unspecified; Z86.73 Personal history of transient ischemic attack (TIA), and cerebral infarction without residual deficits; Z79.84 Long term (current) use of oral hypoglycemic drugs; Z11.59 Encounter for screening for other viral diseases
CPT/HCPCS: 36415; 70450; 70553; 80053; 80061; 81241; 81400; 82607; 82948; 83036; 83090; 84165; 84484; 85025; 85303; 85306; 85597; 85598; 85610; 85613; 85730; 85732; 86039; 86146; 86147; 86148; 86592; 86849; 93005; 93306; 93880; 93970; 95812; 96372; 97139; 99284; G0378; J1817; J7030